=== PATIENT | male | born 1995 | race Two or more races ===

== ENCOUNTER → 2017-11-21 | Emergency (ER) | payer OTHER ==
[~2017-11-21] VITALS: Ht 172.7 cm; Wt 99.8 kg
== END | disposition home or self-care (01) ==
LOC: ER 16:37
DX: S60.552A Superficial foreign body of left hand, initial encounter (principal); W56.81XA Bitten by other nonvenomous marine animals, initial encounter; Y93.89 Activity, other specified; Y92.832 Beach as the place of occurrence of the external cause; Y99.8 Other external cause status